=== PATIENT | male | born 2000 | race Caucasian/White ===

== ENCOUNTER 2018-05-22 18:41 | Emergency (ER) | payer OTHER ==
[2018-05-22] MEDS: LIDOCAINE 1% MDV 20ML VIAL SC (19:30)
[2018-05-22] MEDS: ADACEL/BOOSTRIX VACCINE (DIPHTH/PERTUSS/ACELL/TETANUS)0.5ML SYR (90715) IM (19:30)
[2018-05-22] MEDS: PERCOCET 5MG/325MG TAB PO (19:30)
[2018-05-22] MEDS: OXYCODONE/APAP 5MG/325MG(BULK FOR ED) 1 TABLET PO (20:40)
[2018-05-22] MEDS: AUGMENTIN 875 MG TAB PO (20:40)
== END 2018-05-22 20:46 | disposition home or self-care (01) ==
LOC: M ED 18:41
DX: S61.412A Laceration without foreign body of left hand, initial encounter (principal); W26.0XXA Contact with knife, initial encounter; Y92.098 Other place in other non-institutional residence as the place of occurrence of the external cause; F17.200 Nicotine dependence, unspecified, uncomplicated
CPT/HCPCS: 90715